=== PATIENT | female | born 1995 | race Two or more races ===

== ENCOUNTER 2020-06-09 10:40 | Emergency (ER) | payer MEDICAID ==
[~2020-06-09] VITALS: Ht 160 cm; Wt 67.6 kg
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
[2020-06-09] MEDS ORDERED: IBUPROFEN 600 MG TABLET PO ONE ×2 (11:26→11:30)
--- NOTE | 2020-06-09 11:30 | NUR ---
SINDY IRWIN TAPED AND PROVIDED AN ORTHO SHOE
--- NOTE | 2020-06-09 12:03 | NUR ---
Patient discharged to home in stable condition. Written and verbal after care instructions given. Patient verbalizes understanding of instruction.
[2020-06-09 12:05] VITALS: BP 121/85
== END 2020-06-09 12:05 | disposition home or self-care (01) ==
LOC: ER 10:40
DX: S92.522B Displaced fracture of middle phalanx of left lesser toe(s), initial encounter for open fracture (principal); W22.8XXA Striking against or struck by other objects, initial encounter; Y93.89 Activity, other specified; Y92.098 Other place in other non-institutional residence as the place of occurrence of the external cause; Y99.8 Other external cause status
CPT/HCPCS: 73630-TC

== ENCOUNTER 2022-09-09 05:18 | Emergency (ER) | payer MEDICAID, OTHER ==
[~2022-09-09] VITALS: Ht 152.4 cm; Wt 65.8 kg
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
--- NOTE | 2022-09-09 06:37 | NUR ---
PT UNABLE TO PROVIDE URINE AT THIS TIME
[2022-09-09] MEDS ORDERED: KETOROLAC TROMETHAMINE INJ 30 MG/ML VIAL ONE (06:58)
[2022-09-09] MEDS ORDERED: KETOROLAC TROMETHAMINE INJ 30 MG/ML VIAL IM ONE (07:00)
--- NOTE | 2022-09-09 07:02 | NUR ---
WAIVER SIGNED BY
[2022-09-09] MEDS ORDERED: IBUP-1953 PO (07:08)
[2022-09-09] MEDS ORDERED: METH-647 PO (07:08)
[2022-09-09 07:49] VITALS: BP 122/60
--- NOTE | 2022-09-09 07:50 | NUR ---
PT DID NOT RECEIVE IV TX DURING THIS VISIT , NO STOP TIME NECESSARY FOR IV. PT STABLE AND D/C TO GO HOME, LEFT WITH MOTHER TO DRIVE HER HOME, AMBULATING WELL WITHOUT ASSISTANCE
== END 2022-09-09 07:51 | disposition home or self-care (01) ==
LOC: ER 05:23
DX: S80.01XA Contusion of right knee, initial encounter (principal); S50.01XA Contusion of right elbow, initial encounter; V43.52XA Car driver injured in collision with other type car in traffic accident, initial encounter; Y93.89 Activity, other specified; Y92.89 Other specified places as the place of occurrence of the external cause; Y99.8 Other external cause status
CPT/HCPCS: 99283; 96372; J1885